=== PATIENT | male | born 1960 | race African-American/Black ===

== ENCOUNTER 2023-01-08 23:18 | Inpatient (IN) | payer OTHER ==
[~2023-01-08] VITALS: Ht 188 cm; Wt 117.9 kg
[~2023-01-08 23:18] MED LIST: AMLO10TA80 MT; AMLO10TA80 PO; ASPI-1497 PO; FURO-151 MT; HYDR-4135 PO; IPRA3AMP9 NEB; LANTUSUD SUBCUT; LOSA50TA41 MT
[2023-01-09 00:48] LABS: EOSINOPHILS % 0.8 % (0.0-5.0); HEMATOCRIT. 38.2 % (42.0-52.0); HEMOGLOBIN. 12.2 g/dL (14.0-18.0); LYMPHOCYTES % 27.5 % (20.0-50.0); MEAN CORPUSCULAR HEMOGLOBIN 25.9 pg (28.0-32.0); MEAN CORPUSCULAR VOLUME 81.1 fL (80.0-94.0); MEAN PLATELET VOLUME 9.9 fl (7.4-10.4); MONOCYTES % 8.3 % (2.0-8.0); NEUTROPHILS % 62.4 % (40.0-76.0); PLATELET 247 x1000/uL (130-400); RED BLOOD CELL COUNT 4.71 mill/uL (4.7-6.1)
[2023-01-09 01:05] LABS: ALBUMIN 3.6 g/dL (3.4-5.0); CALCIUM 8.1 mg/dL (8.5-10.1); CHLORIDE 107 mEq/L (98-107); INDEX HEMOLYSI 1 (1-3); INDEX ICTERIC 1 (1-4); INDEX LIPEMIC 1 (1-3); POTASSIUM 3.9 mEq/L (3.5-5.1); SODIUM 136 mEq/L (136-145)
[2023-01-09 01:24] LABS: ALANINE AMINOTRANSFERASE 23 IU/L (13-61); ASPARTATE AMINOTRANSFERASE 20 IU/L (15-37); BILIRUBIN TOTAL 0.9 mg/dL (0.1-1.0); CARBON DIOXIDE 25 mEq/L (21-32); CREATININE 1.5 mg/dL (0.6-1.3); GLUCOSE 171 mg/dL (70-105); NT PRO B-TYPE NATRIURETIC PEP 2820 pg/mL (5-125); PROTEIN TOTAL 8.2 g/dL (6.0-8.3); TROPONIN I HIGH SENSITIVITY 44 ng/L (<78); UREA NITROGEN BLOOD 21 mg/dL (7-21)
[2023-01-09] MEDS ORDERED: FUROSEMIDE 40MG/4ML VIAL IV ONE (01:30)
[2023-01-09] MEDS ORDERED: ASPIRIN 81MG TABLET PO ONE (01:30)
[2023-01-09] MEDS ORDERED: ASPIRIN 81MG TABLET PO NR (05:00)
[2023-01-09] MEDS ORDERED: FUROSEMIDE 40MG/4ML VIAL IV NR (05:00)
[2023-01-09] MEDS: NITROGLYCERIN OINT 1GM/INCH UDPKT TD ONE ×2 (05:15→06:25)
[2023-01-09] MEDS ORDERED: HYDRALAZINE 20MG/ML VIAL IV ONE (06:45)
[2023-01-09 10:15] VITALS: BP 213/137; PULSE 100; RESP 20; TEMP 98.2
[2023-01-09] MEDS ORDERED: ONDANSETRON HCL 4MG/2ML INJ IV PRN (12:00)
[2023-01-09] MEDS ORDERED: IPRATROPIUM/ALBUTEROL 0.5-3(2.5)MG/3ML NEB HHN PRN (12:00)
[2023-01-09] MEDS ORDERED: METOLAZONE 2.5MG TABLET PO NR (12:00)
[2023-01-09] MEDS: LOSARTAN 100 MG TABLET PO SCH (12:40)
[2023-01-09] MEDS ORDERED: MAGNESIUM/ALUMINUM HYDROXIDE/SIMETHICONE 30ML UDC PO PRN (13:00)
[2023-01-09] MEDS ORDERED: DEXTROSE 50% WATER 50ML SYRINGE IV PRN (14:00)
[2023-01-09] MEDS: ACETAMINOPHEN 325MG TABLET PO PRN (16:14)
[2023-01-09] MEDS: BLOOD SUGAR DIAGNOSTIC STRIP TEST SCH ×2 (17:17→21:00)
[2023-01-09] MEDS: FUROSEMIDE 40MG/4ML VIAL IVP SCH (17:18)
[2023-01-09] MEDS: INSULIN LISPRO 100 UNITS/ML SUBCUT SCH ×2 (17:55→21:00)
[2023-01-09 20:00] VITALS: BP 153/81; PULSE 87; RESP 16; TEMP 97.4
[2023-01-09] MEDS ORDERED: FAMOTIDINE 20MG TABLET PO SCH (21:00)
[2023-01-09] MEDS: CARVEDILOL 12.5MG TABLET PO SCH (22:19)
[2023-01-10] VITALS: BP 141/73; PULSE 71; RESP 16; TEMP 97
[2023-01-10 03:15] LABS: *AMPHETAMINES SCREEN URINE NEGATIVE (NEGATIVE); *BARBITURATES SCREEN URINE NEGATIVE (NEGATIVE); *BENZODIAZEPINES SCREEN URINE NEGATIVE (NEGATIVE); *COCAINE SCREEN URINE NEGATIVE (NEGATIVE); CANNABINOID URINE SCREEN NEGATIVE (NEGATIVE); ECSTASY MDMA SCREEN URINE NEGATIVE (NEGATIVE); OPIATES URINE SCREEN NEGATIVE (NEGATIVE); PHENCYCLIDINE URINE SCREEN NEGATIVE (NEGATIVE)
[2023-01-10 04:00] VITALS: BP 157/94; PULSE 75; RESP 20; TEMP 97.7
[2023-01-10] MEDS: BLOOD SUGAR DIAGNOSTIC STRIP TEST SCH ×2 (05:21→12:47)
[2023-01-10] MEDS: FUROSEMIDE 40MG/4ML VIAL IVP SCH (06:38)
[2023-01-10] MEDS: INSULIN LISPRO 100 UNITS/ML SUBCUT SCH ×2 (07:50→12:55)
[2023-01-10 08:00] VITALS: BP 156/91; PULSE 75; RESP 19; TEMP 97.9
[2023-01-10] MEDS: LOSARTAN 100 MG TABLET PO SCH (08:52)
[2023-01-10] MEDS: CARVEDILOL 12.5MG TABLET PO SCH (08:52)
[2023-01-10] MEDS ORDERED: COR12 PO (11:57)
[2023-01-10] MEDS ORDERED: FURO80TA87 MT (11:57)
[2023-01-10] MEDS ORDERED: LOSA100T33 MT (11:57)
[2023-01-10] MEDS ORDERED: POTA-205 MT (11:57)
[2023-01-10 12:00] VITALS: BP 149/76; PULSE 69; RESP 20; TEMP 96.8
[2023-01-10] MEDS ORDERED: POTASSIUM CHLORIDE 20MEQ TABLET SR PO NR (12:00)
[2023-01-10] MEDS ORDERED: METOLAZONE 2.5MG TABLET PO NR (12:00)
[2023-01-10] MEDS: ACETAMINOPHEN 325MG TABLET PO PRN (12:57)
[2023-01-10 15:02] VITALS: BP 160/95; PULSE 87; TEMP 96.6; O2SAT 97
== END 2023-01-10 16:00 | disposition home or self-care (01) | DRG 194 ==
LOC: ER 23:18 → 6EST 01-09 05:24
PROVIDERS: ADMIT Internal Medicine; ATTEND Internal Medicine
DX: I11.0 Hypertensive heart disease with heart failure (principal); N17.0 Acute kidney failure with tubular necrosis; I16.0 Hypertensive urgency; I50.23 Acute on chronic systolic (congestive) heart failure; J44.9 Chronic obstructive pulmonary disease, unspecified; E11.9 Type 2 diabetes mellitus without complications; E66.9 Obesity, unspecified; Z72.0 Tobacco use; Z88.8 Allergy status to other drugs, medicaments and biological substances; Z79.899 Other long term (current) drug therapy; Z79.82 Long term (current) use of aspirin; Z71.6 Tobacco abuse counseling; Z68.33 Body mass index [BMI] 33.0-33.9, adult
CPT/HCPCS: 36415; 71045; 80053; 80305; 82962; 83880; 84484; 85025; 93005; 99285; J1815; J1940

== ENCOUNTER 2023-07-12 08:32 | Emergency (ER) | payer OTHER ==
[~2023-07-12] VITALS: Ht 182.9 cm; Wt 113.0 kg
[~2023-07-12 08:32] MED LIST changes: +COR12 PO; +FURO80TA87 MT; -HYDR-4135 PO; +LOSA100T33 MT; +POTA-205 MT
[2023-07-12 08:37] VITALS: TEMP 98.3; O2SAT 99
[2023-07-12 09:01] LABS: BASOPHILS % 0.8 % (0.0-2.0); DIFFERENTIAL COMMENT 0; EOSINOPHILS % 0.3 % (0.0-5.0); HEMATOCRIT. 41.6 % (42.0-52.0); HEMOGLOBIN. 13.3 g/dL (14.0-18.0); LYMPHOCYTES % 18.7 % (20.0-50.0); MEAN CORPUSCULAR HEMOGLOBIN 27.1 pg (28.0-32.0); MEAN CORPUSCULAR VOLUME 84.8 fL (80.0-94.0); MONOCYTES % 9.2 % (2.0-8.0); PLATELET 232 x1000/uL (130-400); RED CELL DISTRIBUTION WIDTH 16.2 % (11.6-14.6)
[2023-07-12 09:08] LABS: INR 1.3
[2023-07-12 09:37] LABS: ALANINE AMINOTRANSFERASE 120 IU/L (10-49); ALBUMIN 4.5 g/dL (3.2-4.8); ASPARTATE AMINOTRANSFERASE 139 IU/L (<34); BILIRUBIN TOTAL 2.5 mg/dL (0.1-1.0); CARBON DIOXIDE 25 mEq/L (21-32); CHLORIDE 101 mEq/L (98-107); CREATININE 1.4 mg/dL (0.6-1.3); GLUCOSE 131 mg/dL (70-105); POTASSIUM 3.6 mEq/L (3.5-5.1); SODIUM 135 mEq/L (136-145); TROPONIN I HIGH SENSITIVITY 50 ng/L (3.0-53); UREA NITROGEN BLOOD 18 mg/dL (9-23)
[2023-07-12 09:42] LABS: CLARITY URINE CLEAR (CLEAR); COLOR URINE YELLOW (YELLOW); GLUCOSE URINE 3+ (NEGATIVE); KETONES URINE NEGATIVE (NEGATIVE); LEUKOCYTE ESTERASE URINE 1+ (NEGATIVE); NITRITE URINE NEGATIVE (NEGATIVE); OCCULT BLOOD URINE 1+ (NEGATIVE); PH URINE 5.5 (4.5-8.0); PROTEIN URINE 2+ (NEGATIVE); SPECIFIC GRAVITY URINE 1.012 (1.005-1.030)
[2023-07-12 10:10] LABS: SQUAMOUS EPITHELIAL CELL URINE RARE /lpf (RARE/1+)
[2023-07-12 10:11] LABS: MUCUS URINE TRACE /lpf (NONE/TRACE)
[2023-07-12 10:12] LABS: BACTERIA URINE TRACE; RBC URINE 0-2 /hpf (0-2); WBC URINE 15-25 /hpf (0-2)
[2023-07-12 11:30] VITALS: BP 214/136; PULSE 104; RESP 20
[2023-07-12] MEDS: CEFTRIAXONE 1GM/50ML 50 ML IV ONE (11:30)
[2023-07-12] MEDS: SODIUM CHLORIDE 0.9% 1,000 ML IV ONE (11:30)
[2023-07-12] MEDS: KETOROLAC 15MG/ML VIAL IV ONE (11:30)
[2023-07-12] MEDS ORDERED: CLONIDINE 0.2MG TABLET PO ONE (13:45)
[2023-07-12] MEDS ORDERED: FAMO-135 MT (13:53)
[2023-07-12] MEDS ORDERED: NITR-87 MT (13:54)
[2023-07-12] MEDS: HYDRALAZINE 20MG/ML VIAL IV ONE (13:59)
[2023-07-12] MEDS: ONDANSETRON 4MG ODT PO ONE (14:07)
[2023-07-12] MEDS: NITROFURANTOIN 100MG M/M CAPSULE PO ONE (14:07)
[2023-07-12] MEDS ORDERED: CLONIDINE 0.1MG TABLET PO NR (14:15)
== END 2023-07-12 13:48 | disposition home or self-care (01) ==
LOC: ER 08:32
DX: K29.70 Gastritis, unspecified, without bleeding (principal); E11.9 Type 2 diabetes mellitus without complications; I11.0 Hypertensive heart disease with heart failure; I50.9 Heart failure, unspecified; Z88.8 Allergy status to other drugs, medicaments and biological substances; Z79.899 Other long term (current) drug therapy; Z98.890 Other specified postprocedural states; Z79.82 Long term (current) use of aspirin
CPT/HCPCS: 80053; 81003; 83880; 85025; 85610; 87086; 84484; 36415; 71045; 76705; 93005; 99285; Q0162; J0696; J1885; J7030; Z7610